=== PATIENT | male | born 1950 | race Two or more races ===

== ENCOUNTER 2024-07-21 07:05 | Outpatient (CLI) | payer OTHER ==
[~2024-07-21 07:05] MED LIST: ATORVASTATIN CA40 MG; AUVELITY ER 451 EACH; BUPROPION HCL100 MG; BUSPIRONE HCL7.5 MG; DONEPEZIL HCL OD5 MG; ECOTRIN81 MG; IMODIUM A-D2 M2; LISINOPRIL10 MG; MEMANTINE HCL E28 MG; PROTONIX40 M1; PROTONIX40 M1 PO; ROZEREM8 MG; SERTRALINE HCL50 MG; SYNTHROID100 MCG; TAMS0.4C
== END 2024-07-21 07:11 | disposition home or self-care (01) ==
LOC: NUCLEAR 07:05
PROVIDERS: ATTEND Internal Medicine
DX: E11.43 Type 2 diabetes mellitus with diabetic autonomic (poly)neuropathy (principal); N11.0 Nonobstructive reflux-associated chronic pyelonephritis
CPT/HCPCS: 78264; A9541

== ENCOUNTER 2024-10-06 08:22 | Emergency (ER) | payer OTHER ==
[~2024-10-06] VITALS: Ht 172.7 cm; Wt 72.6 kg
[2024-10-06] MEDS ORDERED: ZOLPIDEM TARTRATE 10 MG TABLET PO ONE (08:45)
== END 2024-10-06 10:13 | disposition home or self-care (01) ==
LOC: ER 08:22
DX: G30.8 Other Alzheimer's disease (principal); F02.80 Dementia in other diseases classified elsewhere, unspecified severity, without behavioral disturbance, psychotic disturbance, mood disturbance, and anxiety; F32.89 Other specified depressive episodes; E03.8 Other specified hypothyroidism; I10 Essential (primary) hypertension

== ENCOUNTER 2024-10-09 12:00 | Emergency (ER) | payer OTHER ==
[~2024-10-09] VITALS: Ht 177.8 cm; Wt 63.5 kg
[2024-10-09] MEDS ORDERED: FAMOTIDINE/PF 20 MG/2 ML VIAL ONE (12:56)
[2024-10-09] MEDS ORDERED: KETOROLAC TROMETHAMINE 30 MG VIAL ONE (12:56)
[2024-10-09] MEDS ORDERED: FAMOtidine 10 MG/ML (4ML VIAL) IV ONE (13:00)
[2024-10-09] MEDS ORDERED: KETOROLAC TROMETHAMINE 30 MG VIAL IU ONE (13:00)
[2024-10-09 14:03] LABS: HEMATOCRIT 39.2 % (39.0-48.0); HEMOGLOBIN 12.8 g/dL (13-16.00); MEAN CELL VOLUME 94.7 fL (80.0-100.00); MEAN CORPUSCULAR HEMOGLOBIN 30.9 pg (27.00-32.0); MEAN CORPUSCULAR HGB CONC 32.6 g/dl (32.0-36.0); PLATELET COUNT 168 K/uL (150-450); RED BLOOD COUNT 4.14 M/uL (4.00-6.00)
[2024-10-09 14:22] LABS: INR 1.1; PARTIAL THROMBOPLASTIN TIME 27.7 SECONDS (22.0-34.0); PROTHROMBIN TIME 11.9 SECONDS (9.0-11.5)
[2024-10-09 14:23] LABS: ALBUMIN 3.7 gm/dL (3.4-5.0); BILIRUBIN TOTAL 0.53 mg/dL (0.3-1.2); CALCIUM 8.7 mg/dL (8.5-10.1); CREATININE SERUM 1.18 mg/dL (0.70-1.30); GFR 60.34; GLOBULINA 3.3 G/DL (2.4-3.5); POTASSIUM 4.25 mEq/L (3.5-5.1)
[2024-10-09 16:15] LABS: URINE APPEARANCE Clear; URINE BILIRRUBIN Negative (NEGATIVE); URINE BLOOD Negative; URINE COLOR Yellow; URINE GLUCOSE Negative (NEGATIVE); URINE KETONE Negative (NEGATIVE); URINE LEUKOCYTE Negative; URINE NITRATE Negative; URINE PROTEIN Negative (NEGATIVE); URINE UROBILINOGEN 0.2 E.U./dl
[2024-10-09 16:20] LABS: URINE BACTERIA 7.3 uL (0.0-1933); URINE WBC 7.5 uL (0.0-23.2)
[2024-10-09 16:23] LABS: URINE CAST 0.29 uL (0.0-1.40); URINE RBC 1.3 uL (0.0-20.8)
[2024-10-09] MEDS ORDERED: METOCLOPRAMIDE HCL 5 MG TABLET PO ONE (16:30)
[2024-10-09] MEDS ORDERED: METOCLOPRAMIDE HCL 10 MG TABLET PO NR (17:00)
== END 2024-10-09 18:13 | disposition home or self-care (01) ==
LOC: ER 12:00
PROVIDERS: General Practice
DX: R10.9 Unspecified abdominal pain (principal); I10 Essential (primary) hypertension; E03.8 Other specified hypothyroidism
CPT/HCPCS: 36415; 74177; 96365; 99284; J1885; J3490; Q9965

== ENCOUNTER 2024-10-16 05:35 | Emergency (ER) | payer OTHER ==
[~2024-10-16] VITALS: Ht 172.7 cm; Wt 71.7 kg
[2024-10-16] MEDS ORDERED: FAMOTIDINE/PF 20 MG in 0.9 % SODIUM CHLORIDE 8 ML IV PUSH STA (06:25)
[2024-10-16] MEDS ORDERED: 0.9 % SODIUM CHLORIDE 1,000 ML IV SCH (06:30)
[2024-10-16 08:04] LABS: HEMATOCRIT 35.9 % (39.0-48.0); HEMOGLOBIN 11.9 g/dL (13-16.00); MEAN CELL VOLUME 94.3 fL (80.0-100.00); MEAN CORPUSCULAR HEMOGLOBIN 31.3 pg (27.00-32.0); MEAN CORPUSCULAR HGB CONC 33.2 g/dl (32.0-36.0); PLATELET COUNT 151 K/uL (150-450); RED CELL DISTRIBUTION WIDTH 12.6 % (11.5-14.5)
[2024-10-16 08:29] LABS: ALBUMIN 3.4 gm/dL (3.4-5.0); BILIRUBIN TOTAL 0.38 mg/dL (0.3-1.2); CALCIUM 8.5 mg/dL (8.5-10.1); CREATININE SERUM 1.09 mg/dL (0.70-1.30); GFR 66.13; GLOBULINA 3.1 G/DL (2.4-3.5); POTASSIUM 4.55 mEq/L (3.5-5.1); TOTAL PROTEIN 6.5 gm/dL (6.4-8.2)
[2024-10-16] MEDS ORDERED: FAMOtidine 10 MG/ML (4ML VIAL) IV PUSH ONE (09:00)
[2024-10-18] MEDS ORDERED: 8 HOUR PAIN RE650 M1 PO (17:31)
[2024-10-18] MEDS ORDERED: PEPCID20 MG PO (17:31)
== END 2024-10-16 09:06 | disposition home or self-care (01) ==
LOC: ER 05:35
PROVIDERS: General Practice
DX: K31.84 Gastroparesis (principal); I10 Essential (primary) hypertension; F03.90 Unspecified dementia, unspecified severity, without behavioral disturbance, psychotic disturbance, mood disturbance, and anxiety
CPT/HCPCS: 36415; 96365; 96366; 99283; J3490

== ENCOUNTER → 2024-10-18 | Emergency (ER) | payer OTHER ==
[~2024-10-18] VITALS: Ht 172.7 cm; Wt 68.0 kg
[~2024-10-18] MED LIST changes: +8 HOUR PAIN RE650 M1 PO; +FAMOTIDINE/PF 20 MG/2 ML VIAL IV PUSH STA; +METOCLOPRAMIDE HCL 5 MG/ML VIAL IM STA; +ONDANSETRON HCL 2 MG/ML VIAL IV STA; +PEPCID20 MG PO
[2024-10-18 15:32] LABS: HEMATOCRIT 40.4 % (39.0-48.0); HEMOGLOBIN 13.4 g/dL (13-16.00); MEAN CELL VOLUME 94.5 fL (80.0-100.00); MEAN CORPUSCULAR HEMOGLOBIN 31.4 pg (27.00-32.0); MEAN CORPUSCULAR HGB CONC 33.2 g/dl (32.0-36.0); PLATELET COUNT 166 K/uL (150-450); RED BLOOD COUNT 4.28 M/uL (4.00-6.00); RED CELL DISTRIBUTION WIDTH 12.9 % (11.5-14.5)
[2024-10-18 15:53] LABS: ALBUMIN 4.3 gm/dL (3.4-5.0); BILIRUBIN TOTAL 0.57 mg/dL (0.3-1.2); CALCIUM 9.2 mg/dL (8.5-10.1); CREATININE SERUM 1.21 mg/dL (0.70-1.30); GFR 58.62; GLOBULINA 3.1 G/DL (2.4-3.5); POTASSIUM 4.14 mEq/L (3.5-5.1); TOTAL PROTEIN 7.4 gm/dL (6.4-8.2)
== END | disposition home or self-care (01) ==
LOC: ER 12:43
DX: K31.84 Gastroparesis (principal)
CPT/HCPCS: 36415; 96365; 96372; 99283; J2405; J2765; J3490

== ENCOUNTER → 2024-11-30 | Day surgery (SDC) | payer OTHER ==
[2024-11-25 09:20] VITALS: BP 104/69
[2024-11-25 10:46] LABS: HEMATOCRIT 41.2 % (39.0-48.0); HEMOGLOBIN 13.9 g/dL (13-16.00); MEAN CELL VOLUME 95.7 fL (80.0-100.00); MEAN CORPUSCULAR HEMOGLOBIN 32.3 pg (27.00-32.0); MEAN CORPUSCULAR HGB CONC 33.8 g/dl (32.0-36.0); PLATELET COUNT 158 K/uL (150-450); RED BLOOD COUNT 4.31 M/uL (4.00-6.00); RED CELL DISTRIBUTION WIDTH 15.8 % (11.5-14.5)
[2024-11-25 11:03] LABS: INR 1.12; PARTIAL THROMBOPLASTIN TIME 27.6 SECONDS (22.0-34.0)
[2024-11-25 11:21] LABS: PROTHROMBIN TIME 12.1 SECONDS (9.0-11.5)
[2024-11-25 11:35] LABS: ALBUMIN 4.1 gm/dL (3.4-5.0); BILIRUBIN TOTAL 0.29 mg/dL (0.3-1.2); CALCIUM 9.4 mg/dL (8.5-10.1); CREATININE SERUM 1.17 mg/dL (0.70-1.30); GFR 60.94; GLOBULINA 2.8 G/DL (2.4-3.5); POTASSIUM 4.81 mEq/L (3.5-5.1); TOTAL PROTEIN 6.9 gm/dL (6.4-8.2)
[2024-11-25 12:10] LABS: URINE APPEARANCE Clear; URINE BILIRRUBIN Negative (NEGATIVE); URINE BLOOD Negative; URINE COLOR Yellow; URINE GLUCOSE Negative (NEGATIVE); URINE KETONE Negative (NEGATIVE); URINE LEUKOCYTE Trace; URINE NITRATE Negative; URINE PROTEIN Negative (NEGATIVE); URINE UROBILINOGEN 0.2 E.U./dl
[2024-11-25 12:13] LABS: URINE BACTERIA 9.7 uL (0.0-1933); URINE EPITHELIAL CELLS 3.1 uL (0.0-38.8); URINE RBC 2.2 uL (0.0-20.8)
[2024-11-25 12:20] LABS: URINE CAST 0.58 uL (0.0-1.40)
[~2024-11-30] VITALS: Ht 172.7 cm; Wt 67.1 kg
[~2024-11-30] MED LIST changes: +AMBIEN10 MG PO; +CEFAZOLIN SODIUM 1,000 MG VIAL ONE; -FAMOTIDINE/PF 20 MG/2 ML VIAL IV PUSH STA; +KLONOPIN; -METOCLOPRAMIDE HCL 5 MG/ML VIAL IM STA; +MORPHINE SULFATE 2 MG/ML CARTRIDGE IV ONE; -ONDANSETRON HCL 2 MG/ML VIAL IV STA; +ONDANSETRON HCL 2 MG/ML VIAL ONE; +VALTREX1000 MG PO; +ZESTRIL10 M1 PO
== END | disposition home or self-care (01) ==
LOC: ADM 11-25 08:15 → CIR.AMB 08:15
PROVIDERS: ATTEND Surgery
DX: K80.10 Calculus of gallbladder with chronic cholecystitis without obstruction (principal)